=== PATIENT | female | born 1960 | race Caucasian/White ===

== ENCOUNTER 2016-10-29 11:23 | Day surgery (SDC) | payer OTHER ==
[~2016-10-29] VITALS: Ht 157.5 cm; Wt 59.1 kg
[~2016-10-29 11:23] MED LIST: CODE118S PO; LEVO500T72 PO; LORA-186 PO; PSEU120T51 PO
[2016-10-29 13:08] VITALS: Ht 157.5 cm; Wt 59.1 kg
[2016-10-29] MEDS ORDERED: METF500T4 PO (13:21)
[2016-10-29] MEDS ORDERED: CHOLESTEROL MED (13:21)
[2016-10-29] MEDS ORDERED: PROPOFOL 20 ML ONE (14:17)
[2016-10-29] MEDS ORDERED: GLYCOPYRROLATE 0.4 MG INJ ONE (14:17)
[2016-10-29 14:29] VITALS: BP 163/69; PULSE 65; RESP 20
[2016-10-29 15:14] VITALS: BP 133/80; RESP 18
--- NOTE | 2016-10-29 15:33 | GILP ---
DATE OF PROCEDURE: PROCEDURE: Colonoscopy to cecum. BRIEF HISTORY AND INDICATIONS: The patient is being evaluated for colorectal cancer screening. PREMEDICATION: Monitored anesthesia care by the anesthesiologist. SURGEON: Belkis Colby MD INSTRUMENT USED: Olympus colonoscope. PREPARATION: Adequate. TECHNIQUE: After informed consent, with the patient/relatives understanding the procedure, its indic ations potential risks and complications, including but not limited to: allergic reaction, bleeding, perforation, infection, missed lesions and after all pertinent questions were answered to the patie nt's satisfaction, the patient/relatives signed the witnessed informed consent. Following this, premedication was administered slowly IV push by under careful cardiovascular and re spiratory monitoring with pulse oximetry, automatic blood pressure and director of early childhood education. Once the sedativ e effect was achieved, the patient was placed in the left lateral decubitus position, digital rectal examination was performed. The colonoscope was then introduced and advanced under visual control th roughout all segments of the colon including: the rectum, sigmoid, descending colon, splenic flexure , transverse colon, hepatic flexure, ascending colon and finally reaching the cecum which was clearl y identified by transillumination, finger indentation and the ileocecal valve. Careful examination o f the mucosa of the lower gastrointestinal tract both on insertion as well as withdrawal of the inst rument disclosed the following findings: Rectal Examination: No evidence of perirectal disease, no masses. Colonic Mucosa: The colonic mucosa is unremarkable throughout. The ileocecal valve was clearly krysta ntified and the instrument was withdrawn, reexamining the mucosa in detail. No additional abnormali ties are noted, with the exception of small internal hemorrhoids of no clinical significance. The instrument was then withdrawn, the patient tolerated the procedure well and was transferred out of the [facility]oscopy Suite awake and in good condition to continue recovery under observation. IMPRESSION: 1. Normal colonoscopy to the cecum. 2. Small internal hemorrhoids, of no clinical significance. PLAN: The patient will be followed up as an outpatient. Annual Hemoccult stool testing is recommen ded and screening colonoscopy in 10 years is recommended. Dictated By: BELKIS GRAY Conf#: [id number] DID#: [id number]
== END 2016-10-29 16:33 | disposition home or self-care (01) ==
LOC: GIL 11:23
PROVIDERS: ATTEND Internal Medicine Gastroenterology
DX: Z12.11 Encounter for screening for malignant neoplasm of colon (principal); E11.9 Type 2 diabetes mellitus without complications
CPT/HCPCS: 45378; 82962; Z7610